=== PATIENT | female | born 1995 | race Hispanic/Latino ===

== ENCOUNTER 2021-08-24 17:57 | Emergency (ER) | payer SELFPAY ==
[2021-08-24] MEDS ORDERED: Ondansetron PF 4 MG/2 ML Vial ONE (18:26)
[2021-08-24 18:28] LABS: #Eosinphils 0.1 thou/uL (0.0-0.7); #Lymphocytes 2.7 thou/uL (1.20-3.40); #Monocytes 0.5 thou/uL (0.11-0.59); %Basophils 0.3 % (0.0-1.0); %Eosinophils 0.8 % (0.0-10.0); %Lymphocytes 20.4 % (21.0-51.0); %Monocytes 3.4 % (0.0-10.0); %Neutrophils 75.1 % (42.0-75.0); Hemoglobin 13.3 g/dL (12.0-16.0); Mean Corpuscular HGB CONC 32.6 g/dL (32.0-36.0); Mean Corpuscular Hemoglobin 27.1 pg (27.0-31.0); Mean Corpuscular Volume 83.3 fL (78.0-98.0); Mean Platelet Volume 7.1 fL (7.4-10.4); Platelet Count 344 thou/uL (130-400); RBC Distribution Width 12.7 % (11.5-14.5); Red Blood Cell (RBC) Count 4.89 mill/uL (4.20-5.40); White Blood Cell (WBC) Count 13.3 thou/uL (4.8-10.8)
[2021-08-24] MEDS ORDERED: Pantoprazole 40 MG VIAL ONE (18:47)
[2021-08-24] MEDS ORDERED: Ketorolac Tromethamine 30 MG/ML VIAL ONE (19:20)
[2021-08-24 19:33] LABS: ALT (SGPT) 39 U/L (8-55); AST (SGOT) 21 U/L (5-34); Albumin 4.5 g/dL (3.5-5.0); Alkaline Phosphatase 71 U/L (40-110); Anion Gap 15 mmol/L (10-20); BUN (Urea Nitrogen) 14 mg/dL (7.0-18.7); Bilirubin, Total 0.4 mg/dL (0.2-1.2); Calc. Creatinine Clearance 0 mL/min (70-130); Calcium 9.4 mg/dL (7.8-10.44); Carbon Dioxide 22 mmol/L (22-29); Chloride 102 mmol/L (98-107); Globulin 3.6 g/dL (2.4-3.5); Glucose 163 mg/dL (70-105); Lipase 30 U/L (8-78); Potassium 3.3 mmol/L (3.5-5.1); Protein, Total 8.1 g/dL (6.0-8.3); Sodium 136 mmol/L (136-145)
== END 2021-08-24 20:08 | disposition home or self-care (01) ==
LOC: ERS 17:57
DX: R10.13 Epigastric pain (principal); R11.2 Nausea with vomiting, unspecified
CPT/HCPCS: 71045; 80053; 83690; 84484; 85025; 93005; 94760; 96372; 96374; 96375; C9113; J0500; J1885; J2405

== ENCOUNTER 2021-08-31 07:23 | Day surgery (SDC) | payer SELFPAY ==
[2021-08-31] MEDS ORDERED: Morphine 4 MG/ML VIAL ONE (08:29)
[2021-08-31] MEDS ORDERED: Ondansetron PF 4 MG/2 ML Vial ONE ×3 (08:29→18:44)
[2021-08-31 08:35] LABS: #Basophils 0.1 thou/uL (0.0-0.2); #Eosinphils 0.3 thou/uL (0.0-0.7); #Lymphocytes 1.8 thou/uL (1.20-3.40); #Monocytes 0.6 thou/uL (0.11-0.59); #Neutrophils 7.4 thou/uL (1.40-6.50); %Basophils 0.8 % (0.0-1.0); %Eosinophils 2.9 % (0.0-10.0); %Lymphocytes 17.3 % (21.0-51.0); %Monocytes 5.6 % (0.0-10.0); %Neutrophils 73.5 % (42.0-75.0); Hemoglobin 12.9 g/dL (12.0-16.0); Mean Corpuscular Hemoglobin 28.2 pg (27.0-31.0); Mean Corpuscular Volume 82.9 fL (78.0-98.0); Mean Platelet Volume 7.3 fL (7.4-10.4); Platelet Count 325 thou/uL (130-400); RBC Distribution Width 12.5 % (11.5-14.5); Red Blood Cell (RBC) Count 4.59 mill/uL (4.20-5.40); White Blood Cell (WBC) Count 10.1 thou/uL (4.8-10.8)
[2021-08-31 08:45] LABS: BHCG - Serum Negative (NEGATIVE); Pregs Control Background? CLEAR/WHITE (CLR/WHITE); Pregs Control Bar Appear? YES (CONTROL BAR)
[2021-08-31 08:51] LABS: Bacteria/HPF Rare-Few HPF (None Seen); Bilirubin Negative (Negative); Blood, Urine Negative (Negative); Clarity Hazy (Clear); Glucose, Urine (Dipstick) Normal (Negative); Ketone, Urine 20 mg/dL (Negative); Leukocyte 25 Leu/uL (Negative); Nitrite Negative (Negative); Protein, Urine (Dipstick) 10 mg/dL (Neg-Trace); RBC/HPF 0-3 HPF (0-3); Urobilinogen Normal mg/dL (Less than 2)
[2021-08-31 08:53] LABS: ALT (SGPT) 91 U/L (8-55); AST (SGOT) 111 U/L (5-34); Alkaline Phosphatase 91 U/L (40-110); Anion Gap 12 mmol/L (10-20); BUN (Urea Nitrogen) 9 mg/dL (7.0-18.7); Bilirubin, Total 0.7 mg/dL (0.2-1.2); Calc. Creatinine Clearance 0 mL/min (70-130); Calcium 9.5 mg/dL (7.8-10.44); Carbon Dioxide 25 mmol/L (22-29); Chloride 103 mmol/L (98-107); Globulin 3.5 g/dL (2.4-3.5); Glucose 99 mg/dL (70-105); Lipase 38 U/L (8-78); Potassium 3.4 mmol/L (3.5-5.1); Protein, Total 7.5 g/dL (6.0-8.3); Sodium 137 mmol/L (136-145)
[2021-08-31 11:23] LABS: SARS-CoV-2 NAA Rapid Test Not Detected (NotDetected)
[2021-08-31] MEDS ORDERED: Bupivacaine 0.25% HCL 30 ML VIAL ONE (15:45)
[2021-08-31] MEDS ORDERED: EPINEPHrine 1 MG/ML AMP ONE (15:45)
[2021-08-31] MEDS ORDERED: Famotidine/PF 20 mg/2ml Vial ONE (16:13)
[2021-08-31] MEDS ORDERED: Fentanyl 100 MCG/2 ML VIAL ONE ×2 (16:13→18:44)
[2021-08-31] MEDS ORDERED: ceFAZolin 2 GM/Dextrose 50 ML IVPB ONE (16:24)
[2021-08-31] MEDS ORDERED: Glycopyrrolate 0.2 MG/ML 5 ML SYRINGE ONE (16:37)
[2021-08-31] MEDS ORDERED: PROPOFOL 200 MG/20 ML VIAL ONE (16:37)
[2021-08-31] MEDS ORDERED: Lidocaine 1% PF 5 ML VIAL ONE (16:37)
[2021-08-31] MEDS ORDERED: Dexamethasone 20 MG/5 ML VIAL ONE (16:37)
[2021-08-31] MEDS ORDERED: Rocuronium Bromide 10 MG/ML (10ML VIAL) ONE (16:37)
[2021-08-31] MEDS ORDERED: Ketorolac Tromethamine 30 MG/ML VIAL ONE (16:37)
[2021-08-31] MEDS ORDERED: Iothalamate Meglumine 60% 50 ML VIAL FS ONE (17:21)
[2021-08-31] MEDS ORDERED: SUGAMMADEX SODIUM 200 MG/2 ML VIAL ONE (18:16)
[2021-08-31] MEDS ORDERED: Sodium Chloride 0.9% 10 ML ONE (19:51)
[2021-08-31] MEDS ORDERED: Promethazine HCl 25 MG/ML VIAL ONE (19:51)
== END 2021-08-31 20:10 | disposition home or self-care (01) ==
LOC: ERS 07:23 → SDC 13:11
PROVIDERS: ATTEND Surgery
DX: K80.12 Calculus of gallbladder with acute and chronic cholecystitis without obstruction (principal); K76.0 Fatty (change of) liver, not elsewhere classified; E66.01 Morbid (severe) obesity due to excess calories; Z68.34 Body mass index [BMI] 34.0-34.9, adult; Z20.822 Contact with and (suspected) exposure to COVID-19
CPT/HCPCS: 36415; 47532; 76705; 80053; 81003; 81015; 83690; 84703; 85025; 88304; 93005; 93010; 96374; 96375; C1713; J0171; J0690; J1100; J1610; J1885; J2270; J2405; J2550; J2704; J3010; Q9961-U8; S0020; S0028; U0002